=== PATIENT | female | born 1995 | race Caucasian/White ===

== ENCOUNTER 2016-09-21 12:53 | Inpatient (IN) | payer OTHER ==
[~2016-09-21] VITALS: Ht 154.9 cm; Wt 64.0 kg
[2016-09-21 13:06] VITALS: Ht 154.9 cm; Wt 64.0 kg
[2016-09-21 13:07] VITALS: BP 113/73; PULSE 97; RESP 20
[2016-09-21] MEDS ORDERED: PREN1TAB79 PO (13:10)
--- NOTE | 2016-09-21 13:54 | RADRPT ---
PROCEDURE: OB ultrasound for biophysical profile CLINICAL INDICATION: Variable decelerations TECHNIQUE: Multiple sonographic images of the pelvis were obtained. Transabdominal views of the g ravid uterus are available for review. The images were reviewed on a PACS workstation. COMPARISON: None FINDINGS: breathing movement = 2/2 tone = 2/2 motion = 2/2 JANNETTE = 2/2 JANNETTE = 14.9 cm Single live intrauterine with cardiac activity of 143 bpm. position is cephal ic. The placenta is posterior. IMPRESSION: 1. Single live intrauterine gestation. 2. Biophysical profile = 8/8. 3. JANNETTE = 14.9 cm. RPTAT: HH .Hailey Merritt MD, MD Date Time Electronically viewed and signed by .Hailey Merritt MD, on 09/21/2016 13:53 .G/
--- NOTE | 2016-09-21 13:55 | RADRPT ---
PROCEDURE: US OB. CLINICAL INDICATION: Size and dates TECHNIQUE: Multiple sonographic images of the pelvis were obtained. Transabdominal imaging only w as performed. The images were reviewed on a PACS workstation. COMPARISON: No prior studies are available for comparison. FINDINGS: There is a single live intrauterine gestation. Cardiac activity is present with 148 beats per minut e. position is cephalic. Measurements were made in order to determine age. The results are as follows: BPD = 9.04 cm HC = 32.26 cm AC = 34.41 cm FL = 7.01 cm. Estimated gestational age of approximately 36 weeks 6 days. The estimated date of delivery is 10/13/2016. The EFW = 3189 g, 20 %ile. The placenta is posterior. There is no evidence for an abruption or placenta previa. There are no adnexal masses. IMPRESSION: 1. Single live intrauterine gestation of approximately 36 weeks 6 days, by ultrasound criteria. 2. The estimated date of delivery is 10/13/2016. 3. The estimated weight is 3189 g, 20th %ile. RPTAT: HH .Hailey Merritt MD, Date Time Electronically viewed and signed by .Hailey Merritt MD, on 09/21/2016 13:55 .G/
[2016-09-21] MEDS ORDERED: MISOPROSTOL 200 MCG TAB PR PRN (16:00)
[2016-09-21] MEDS ORDERED: OXYTOCIN 30 UNITS/LR 500 ML IV PRN (16:00)
[2016-09-21] MEDS ORDERED: IBUPROFEN 600 MG TAB PO PRN (16:00)
[2016-09-21] MEDS ORDERED: OXYTOCIN 30 UNITS/LR 500 ML IV SCH ×3 (16:00)
[2016-09-21] MEDS ORDERED: LIDOCAINE 1% (MPF) 30 ML INJ INJ PRN (16:00)
[2016-09-21] MEDS ORDERED: METHYLERGONOVINE 0.2 MG INJ IM PRN (16:00)
[2016-09-21] MEDS ORDERED: BUTORPHANOL 2 MG INJ IV PRN (16:00)
[2016-09-21] MEDS ORDERED: CARBOPROST 250 MCG INJ IM PRN (16:00)
[2016-09-21] MEDS: LACTATED RINGER'S 1,000 ML IV SCH ×2 (16:03→23:33)
[2016-09-21] MEDS ORDERED: LACTATED RINGER'S 1,000 ML IV PRN (16:30)
--- NOTE | 2016-09-21 16:49 | HP ---
Date/Time of Note Date/Time of Note DATE: 09/21/16 TIME: 16:45 OB - History Hx of Present Chief Complaint: contractions Last Menstrual Period: Dec 18, 2015 Estimated Due Date: Sep 23, 2016 : 3 Para: 2 Spontaneous : 0 Therapeutic : 0 Care: Good Care Ultrasounds: Normal mid trimester US Obstetrical Complications: None Medical Complications: None Past Family/Social History * Past Medical, Surgical, Family and Obstetric Histories reviewed from chart. GBS Status: Negative OB Admission Exam Vital Signs Vital Signs Vital Signs Date Time Temp Pulse Resp B/P Pulse Ox O2 Delivery O2 Flow Rate FiO2 09/21/16 13:07 98.0 97 20 113/73 Room Air Physical Exam HEENT: WNL Heart: Rhythm Normal Lungs: Clear Abdomen: WNL Extremities: Normal Cervical Dilatation: 3cm Effacement: 50% Station: -1 Membranes: Intact Heart Rate: 140's Accelerations: Accelerations Present Decelerations: No Decelerations Varibility: Moderate Contractions on Admission: 6-10 Minutes Apart OB Assessment/Plan Reason for admission: active labor Plan: Expectant Management MAIKEL CRABTREE MD Sep 21, 2016 16:49
[2016-09-21 18:29] LABS: BASOPHILS % 0.5 % (0.0-2.0); EOSINOPHILS # 0.1 10^3/ul (0.0-0.5); EOSINOPHILS % 0.9 % (0.0-7.0); HEMATOCRIT 30.1 % (37.0-47.0); HEMOGLOBIN 10.3 g/dl (12.0-16.0); LYMPHOCYTES # 1.7 10^3/ul (0.8-2.9); LYMPHOCYTES % 27.4 % (18.0-55.0); MEAN CORPUSCULAR HEMOGLOBIN 27.3 pg (29.0-33.0); MEAN CORPUSCULAR HGB CONC 34.3 g/dl (32.0-37.0); MEAN CORPUSCULAR VOLUME 79.6 fl (72.0-104.0); MEAN PLATELET VOLUME 7.4 fl (7.4-10.4); MONOCYTE # 0.6 10^3/ul (0.3-0.9); MONOCYTES % 9.5 % (0.0-13.0); NEUTROPHIL # 3.8 10^3/ul (1.6-7.5); NEUTROPHILS % 61.7 % (30.0-74.0); PLATELET COUNT 272 10^3/UL (140-440); RED BLOOD COUNT 3.78 10^6/ul (4.20-5.40); RED CELL DISTRIBUTION WIDTH 14.2 % (11.5-14.5); UNCORRECTED WBC 6.2 10^3/ul (4.8-10.8); WHITE BLOOD COUNT 6.2 10^3/ul (4.8-10.8)
[2016-09-21 18:33] LABS: CONDITION 1; LH ANALYZER COMMENTS 1
[2016-09-21 18:41] LABS: INR 0.93; PROTIME 12.5 Sec (12.2-14.2)
[2016-09-21] MEDS ORDERED: FENTAnyl 2MCG/ML-ROPIV 0.2% 100 ML ONE (22:25)
[2016-09-21] MEDS ORDERED: KETOROLAC 30 MG INJ IV PRN (23:00)
[2016-09-21] MEDS ORDERED: FENTAnyl 2MCG/ML-ROPIV 0.2% 100 ML BAG EPI SCH (23:00)
[2016-09-21] MEDS ORDERED: ONDANSETRON 4 MG INJ IV PRN (23:00)
[2016-09-21] MEDS ORDERED: morphine 2 MG INJ IV PRN ×2 (23:00)
[2016-09-21] MEDS ORDERED: DIPHENHYDRAMINE 50 MG INJ IV PRN (23:00)
[2016-09-21] MEDS ORDERED: HYDROmorphONE 1 MG/ML SYG IV PRN ×2 (23:00)
[2016-09-21] MEDS ORDERED: NALOXONE (0.4 MG/ML) INJ IV PRN (23:00)
[2016-09-22] MEDS: LACTATED RINGER'S 1,000 ML IV SCH (03:10)
--- NOTE | 2016-09-22 05:59 | LDN ---
Date/Time of Note Date/Time of Note DATE: 09/22/16 TIME: 05:58 Delivery Summary over intact perineum Placenta Delivered: Spontaneously Meconium: none Perineum intact?: Yes Anesthesia type: Epidural Estimated blood loss: 200 Sponge & Needle done & correct: Yes All needle counts correct: Yes Any foreign bodies felt in the: No Problems: Delivery Information Sex Infant Sex: male Apgars 1 Minute: 8 5 Minute: 9 Suctioning Nose & mouth suctioned at hayder: Yes Delee suction performed: No Umbilical Cord Umbilical cord with: 3 Vessels Cord presentations: no nuchal cord Cord Blood was obtained: Yes Mother & Baby Disposition Disposition Mom & Baby to Maternity; Good: Yes MAIKEL CRABTREE MD Sep 22, 2016 05:59
--- NOTE | 2016-09-22 06:01 | DELSUM ---
Delivery Summary A-C Datetime Report Generated by CPN: 09/22/2016 06:01 DELIVERY PERSONNEL Desolderer: Long, Mary MATERNAL INFORMATION Delivery Anesthesia: Epidural Medications in Delivery: OXYTOCIN 30MG IN 500ML LR Estimated Blood Loss (ml): 250 Placenta Cultured: No Maternal Complications: None LABOR SUMMARY EDC: 09/23/2016 00:00 No. Babies in Womb: 1 Attempted: No Labor Anesthesia: Epidural LABOR INFORMATION Reason for Induction: Not Applicable Complete Dilatation: 09/22/2016 03:59 Oxytocin: N/A Group B Beta Strep: Negative Antibiotics # of Doses: 0 Steroids Given: None Reason Steroids Not Administered: Not Applicable MEMBRANES Membranes Rupture Method: Spontaneous Rupture of Membranes: 09/22/2016 03:59 Length of Rupture (hr): 1.68 Amniotic Fluid Color: Clear Amniotic Fluid Amount: Moderate Amniotic Fluid Odor: None STAGES OF LABOR Stage 2 hr: 1 Stage 2 min: 41 Stage 3 hr: 0 Stage 3 min: 4 VAGINAL DELIVERY Episiotomy: None Laceration Extension: N/A Laceration Type: None Laceration Repair: Not Applicable Initial Vag Sponge Count: 20 Final Vag Sponge Count: 20 Initial Vag Sharps Count: 1 Final Vag Sharps Count: 1 Sponge Count Correct: Yes Sharps Count Correct: Yes BABY A INFORMATION Infant Delivery Date/Time: 09/22/2016 05:40 Method of Delivery: Vaginal Born in Route : No : N/A Forceps: N/A Vacuum Extraction: N/A Shoulder Dystocia : N/A SHOULDER DYSTOCIA BABY A Delivery Date/Time: 09/22/2016 05:40 PRESENTATION/POSITION BABY A Presentation: Cephalic Cephalic Presentation: Vertex Vertex Position: Right Occipital Posterior Breech Presentation: N/A PLACENTA INFORMATION BABY A Placenta Delivery Time : 09/22/2016 05:44 Placenta Method of Delivery: Spontaneous Placenta Status: Delivered SCORES BABY A Heart Rate 1 min: >100 bpm Resp Effort 1 min: Good Cry Reflex Irritability 1 min: Cough/Sneeze/Pulls Away Muscle Tone 1 min: Active Motion Color 1 min: Blue/Pale Resuscitation Effort 1 min: Tactile Stimulation SCORE 1 MIN: 8 Heart Rate 5 min: >100 bpm Resp Effort 5 min: Good Cry Reflex Irritability 5 min: Cough/Sneeze/Pulls Away Muscle Tone 5 min: Active Motion Color 5 min: Body Cot[place], Extremit Blue Resuscitation Effort 5 min: Tactile Stimulation SCORE 5 MIN: 9 INFORMATION BABY A Gestational Age at Delivery: 39.6 Gestational Status: Full Term- 39- 40.6 Weeks Outcome : Liveborn Infant Condition : Stable Sex: Male IDENTIFICATION/MEDS BABY A ID Band Number: [id number] ID Band Location: Right Leg; Left Arm Sensor Applied: Yes Sensor Number: [id number] Sensor Location : Cord Clamp Vitamin K Given : Not Given Erythromycin Given: Not Given WEIGHT/LENGTH BABY A Birthweight (gm): 2880 Infant Weight (lb): 6 Infant Weight (oz): 6 CORD INFORMATION BABY A No. Cord Vessels: 3 Nuchal Cord : N/A Cord Blood Taken: Yes Suction: Mouth; Nose ASSESSMENT BABY A Infant Complications: Decreased Variability; Multiple Variable Decels Physical Findings at Delivery: Within Normal Limits Infant Respirations: Appears Normal Engine Installer/ALS Called : No Infant Care By: ANGELICA HERNANDEZ RN Transferred To: Remains with Mother
[2016-09-22 08:45] VITALS: BP 117/70; PULSE 70; RESP 18
[2016-09-22] MEDS: LACTATED RINGER'S 1,000 ML IV* SCH ×2 (09:14→17:01)
[2016-09-22] MEDS ORDERED: WITCH HAZEL/GLYCERIN PAD PR PRN (09:30)
[2016-09-22] MEDS ORDERED: ACETAMINOPHEN/CODEINE #3 TAB PO PRN (09:30)
[2016-09-22] MEDS ORDERED: OXYTOCIN 30 UNITS/LR 500 ML IV PRN (09:30)
[2016-09-22] MEDS ORDERED: BENZOCAINE 20% 56 ML SPRAY TOP PRN (09:30)
[2016-09-22] MEDS ORDERED: CARBOPROST 250 MCG INJ IM PRN (09:30)
[2016-09-22] MEDS ORDERED: ACETAMINOPHEN 325 MG TAB PO PRN (09:30)
[2016-09-22] MEDS ORDERED: DIBUCAINE 1% 30 GM OINT PR PRN (09:30)
[2016-09-22] MEDS ORDERED: METHYLERGONOVINE 0.2 MG INJ IM PRN (09:30)
[2016-09-22] MEDS ORDERED: MISOPROSTOL 200 MCG TAB PR PRN (09:30)
[2016-09-22] MEDS: IBUPROFEN 600 MG TAB PO SCH ×2 (11:49→17:38)
[2016-09-22 14:59] VITALS: BP 115/69; PULSE 70; RESP 18
[2016-09-22 20:00] VITALS: BP 110/54; PULSE 78; RESP 19
[2016-09-22] MEDS: SENNA/DOCUSATE NA (8.6MG/50MG) TAB PO SCH (20:28)
[2016-09-23] MEDS: IBUPROFEN 600 MG TAB PO SCH ×4 (00:42→17:59)
[2016-09-23] MEDS: LACTATED RINGER'S 1,000 ML IV* SCH (01:01)
[2016-09-23 04:00] VITALS: BP 99/67; PULSE 66; RESP 18
[2016-09-23 07:08] LABS: BASOPHILS % 0.4 % (0.0-2.0); EOSINOPHILS # 0.2 10^3/ul (0.0-0.5); EOSINOPHILS % 1.7 % (0.0-7.0); HEMATOCRIT 24.5 % (37.0-47.0); HEMOGLOBIN 8.4 g/dl (12.0-16.0); LYMPHOCYTES # 2.1 10^3/ul (0.8-2.9); LYMPHOCYTES % 21.7 % (18.0-55.0); MEAN CORPUSCULAR HEMOGLOBIN 27.5 pg (29.0-33.0); MEAN CORPUSCULAR HGB CONC 34.4 g/dl (32.0-37.0); MEAN CORPUSCULAR VOLUME 79.9 fl (72.0-104.0); MEAN PLATELET VOLUME 7.1 fl (7.4-10.4); MONOCYTE # 0.7 10^3/ul (0.3-0.9); MONOCYTES % 7.2 % (0.0-13.0); NEUTROPHIL # 6.7 10^3/ul (1.6-7.5); PLATELET COUNT 213 10^3/UL (140-440); RED BLOOD COUNT 3.07 10^6/ul (4.20-5.40); RED CELL DISTRIBUTION WIDTH 14.2 % (11.5-14.5); UNCORRECTED WBC 9.7 10^3/ul (4.8-10.8); WHITE BLOOD COUNT 9.7 10^3/ul (4.8-10.8)
[2016-09-23 07:10] LABS: CONDITION 1; LH ANALYZER COMMENTS 1
[2016-09-23 07:48] VITALS: BP 98/61; PULSE 77; RESP 18
[2016-09-23] MEDS: SENNA/DOCUSATE NA (8.6MG/50MG) TAB PO SCH ×2 (08:31→21:31)
[2016-09-23 15:19] VITALS: BP 104/65; PULSE 79; RESP 18
[2016-09-23 20:05] VITALS: BP 98/69; PULSE 72; RESP 18
--- NOTE | 2016-09-23 20:48 | DS ---
Date/Time of Note Date/Time of Note DATE: 09/23/16 TIME: 20:47 Obstetrical Discharge Record Final Diagnosis Final Diagnosis: Term delivered Vaginal Delivery Obstetrical Delivery: Spontaneous Condition on Discharge Physical Assessment Voiding: Yes Bowel Movement: Yes Breast: Soft, non-tender Fundus: Firm Calf Tenderness: No Patient Condition: Stable MAIKEL CRABTREE MD Sep 23, 2016 20:48
[2016-09-24 04:10] VITALS: BP 105/67; PULSE 63; RESP 18
[2016-09-24] MEDS: IBUPROFEN 600 MG TAB PO SCH ×4 (05:58→17:15)
[2016-09-24 08:00] VITALS: BP 122/76; PULSE 66; RESP 18
[2016-09-24] MEDS ORDERED: DIPHTH/TET/ACEL PERTUSS (ADULT) 0.5 ML VIAL IM* ONE (09:00)
[2016-09-24] MEDS: SENNA/DOCUSATE NA (8.6MG/50MG) TAB PO SCH (09:21)
[2016-09-24 18:40] VITALS: BP 109/63; PULSE 71; RESP 16
[2016-09-24 19:50] VITALS: BP 117/72; PULSE 77; RESP 18
== END 2016-09-24 21:30 | disposition home or self-care (01) | DRG 775 ==
LOC: OBT 12:53 → L-D 12:54 → OBT 15:20 → PP1 09-22 08:41
PROVIDERS: ADMIT Obstetrics & Gynecology; ATTEND Obstetrics & Gynecology
PROC: 10E0XZZ Delivery of Products of Conception, External Approach (ICD-10-PCS; principal; 2016-09-22)
DX: O80 Encounter for full-term uncomplicated delivery (principal); Z37.0 Single live birth; Z3A.39 39 weeks gestation of pregnancy
CPT/HCPCS: 62319; 76815; 76818; 85025; 85610; 85730; 86592; 86900; 86901; 87340; 90715; 99464; G0463; J3010; J7120

== ENCOUNTER 2017-06-24 08:30 | Day surgery (SDC) | payer OTHER ==
[2017-06-24] VITALS (11 sets, daily range): BP systolic 99–118; BP diastolic 49–72; PULSE 62–78; RESP 16–26
[~2017-06-24] VITALS: Ht 160 cm; Wt 61.4 kg
[~2017-06-24 08:30] MED LIST: PREN1TAB79 PO
[2017-06-24] MEDS ORDERED: ROCURONIUM 50 MG INJ ONE (11:06)
[2017-06-24] MEDS ORDERED: NEOSTIGMINE 3 MG/3 ML SYRINGE ONE (11:06)
[2017-06-24] MEDS ORDERED: GLYCOPYRROLATE 0.4 MG INJ ONE (11:06)
[2017-06-24] MEDS ORDERED: PROPOFOL 20 ML ONE (11:06)
[2017-06-24] MEDS ORDERED: MIDAZOLAM 1 MG/ML 2 ML INJ ONE (11:06)
[2017-06-24] MEDS ORDERED: METOCLOPRAMIDE 10 MG INJ ONE (11:07)
[2017-06-24] MEDS ORDERED: KETOROLAC 30 MG INJ ONE (11:07)
[2017-06-24] MEDS ORDERED: BUPIVACAINE 0.5%/EPI (SDV) 30 ML INJ ONE (11:07)
[2017-06-24] MEDS ORDERED: ONDANSETRON 4 MG INJ ONE (11:07)
[2017-06-24] MEDS ORDERED: ROPIVACAINE 0.5 % 30 ML VIAL ONE (11:07)
[2017-06-24] MEDS ORDERED: CEFAZOLIN 1 GM INJ ONE (11:22)
[2017-06-24] MEDS ORDERED: EPHEDrine SULFATE 50 MG/5 ML SYG ONE (11:39)
[2017-06-24] MEDS ORDERED: morphine (1 MG/ML) 10ML SYRINGE IV PRN ×3 (12:00)
[2017-06-24] MEDS ORDERED: DIPHENHYDRAMINE 50 MG INJ IV PRN (12:00)
[2017-06-24] MEDS ORDERED: ONDANSETRON 4 MG INJ IV PRN ×2 (12:00→13:00)
--- NOTE | 2017-06-24 12:46 | SIPON ---
Date/Time of Note Date/Time of Note DATE: 06/24/17 TIME: 12:42 Operative Report Preoperative Diagnosis Voluntary sterilization Postoperative Diagnosis Same Operation/Procedure Performed Minilaparotomy BTL Surgeon Maikel Crabtree MD assistant manager of operations roofing technician Anesthesia: general Estimated blood loss: minimal Transfusion Required none Specimen right and left Fallopian tubes Grafts/Implants none Complications none MAIKEL CRABTREE MD Jun 24, 2017 12:46
--- NOTE | 2017-06-24 12:46 | SIPON ---
Date/Time of Note Date/Time of Note DATE: 06/24/17 TIME: 12:42 Operative Report Preoperative Diagnosis Voluntary sterilization Postoperative Diagnosis Same Operation/Procedure Performed Minilaparotomy BTL Surgeon Maikel Crabtree MD seed laboratory assistant laboratory tech Anesthesia: general Estimated blood loss: minimal Transfusion Required none Specimen right and left Fallopian tubes Grafts/Implants none Complications none MAIKEL CRABTREE MD Jun 24, 2017 12:46
--- NOTE | 2017-06-24 12:46 | SIPON ---
Date/Time of Note Date/Time of Note DATE: 06/24/17 TIME: 12:42 Operative Report Preoperative Diagnosis Voluntary sterilization Postoperative Diagnosis Same Operation/Procedure Performed Minilaparotomy BTL Surgeon Maikel Crabtree MD transition assistant electrical tech Anesthesia: general Estimated blood loss: minimal Transfusion Required none Specimen right and left Fallopian tubes Grafts/Implants none Complications none MAIKEL CRABTREE MD Jun 24, 2017 12:46
[2017-06-24] MEDS ORDERED: HYDROCODONE/APAP (5/325) TAB PO PRN (13:00)
[2017-06-24] MEDS ORDERED: KETOROLAC 30 MG INJ IV PRN (13:00)
[2017-06-24] MEDS ORDERED: morphine 2 MG INJ IV PRN (13:00)
--- NOTE | 2017-06-24 14:30 | PREOPHP ---
DATE OF ADMISSION: 06/24/2017 HISTORY: A 22-year-old female 3, para 3, requests surgical sterilization by bilateral tubal ligation. PAST MEDICAL HISTORY: Unremarkable. PAST SURGICAL HISTORY: Unremarkable. ALLERGIES: NO KNOWN ALLERGIES. FAMILY HISTORY: Noncontributory. PHYSICAL EXAMINATION: VITAL SIGNS: The patient is afebrile. Vital signs stable. HEAD, NECK AND CHEST: Within normal limits. ABDOMEN: Soft, nontender, nondistended. PELVIC: Normal. EXTREMITIES: Within normal limits. NEUROLOGIC: Within normal limits. IMPRESSION: Voluntary sterilization. PLAN: Minilaparotomy, bilateral tubal ligation. Risks, benefits and alternatives of the procedure were explained to the patient. The patient has been counseled about all of her contraceptive option s including all methods of sterilization. It was explained to the patient that with bilateral tubal ligation there is a chance of failure resulting in ectopic and/or intrauterine . After counseling, the patient said she understood and gave informed consent for the procedure. Dictated By: MAIKEL HINSON/PROSPER Conf#: [id number] DID#: [id number]
--- NOTE | 2017-06-24 15:16 | OPR ---
DATE OF OPERATION: 06/24/2017 PREOPERATIVE DIAGNOSIS: Voluntary sterilization. POSTOPERATIVE DIAGNOSIS: Voluntary sterilization. OPERATION PERFORMED: Minilaparotomy, bilateral tubal ligation. SURGEON: Maikel Bartholomew MD HUC OB: line technician. ANESTHESIA: General. ANESTHESIOLOGIST: Dr. Kim. PROCEDURE: The patient was taken to operating room and placed on the operating table in supine posi tion. After adequate general anesthesia was given, the area was prepared and draped in the usual st erile fashion. Using a scalpel, Pfannenstiel incision was made about 2 fingerbreadths above the symphysis pubis. T he incision was carried to the fascia. The fascia was incised and extended bilaterally with Bovie. Two Latonia's were used to separate the fascia from the muscle. The muscle was dissected down to pe ritoneum. The peritoneum was secured with 2 Kellys and incised with Metzenbaum scissors. The right fallopian tube was grasped with a Nohelia clamp and followed to its fimbrial end to confirm its gamal ntity. Using 0 plain suture ligature, a 5 cm segment of the right fallopian tube was doubly ligated . Using Metzenbaum scissors, a portion of the right fallopian tube above the ligated area was excis ed and sent to pathology. Same procedure was repeated on the left fallopian tube. After assuring h emostasis, the muscle was reapproximated with 2-0 chromic. The fascia was closed with 0 Vicryl cont inuous. Subcutaneous tissue was reapproximated with 0 chromic. Skin was closed with valarie. ESTIMATED BLOOD LOSS: Minimal. COUNTS: All counts were correct. Dictated By: MAIKEL HINSON/PROSPER Conf#: [id number] DID#: [id number]
--- NOTE | 2017-06-24 15:16 | OPR ---
DATE OF OPERATION: 06/24/2017 PREOPERATIVE DIAGNOSIS: Voluntary sterilization. POSTOPERATIVE DIAGNOSIS: Voluntary sterilization. OPERATION PERFORMED: Minilaparotomy, bilateral tubal ligation. SURGEON: Maikel Bartholomew MD [employer]CR[employer] FABRICATOR: erp technical lead. ANESTHESIA: General. ANESTHESIOLOGIST: Dr. Kim. PROCEDURE: The patient was taken to operating room and placed on the operating table in supine posi tion. After adequate general anesthesia was given, the area was prepared and draped in the usual st erile fashion. Using a scalpel, Pfannenstiel incision was made about 2 fingerbreadths above the symphysis pubis. T he incision was carried to the fascia. The fascia was incised and extended bilaterally with Bovie. Two Latonia's were used to separate the fascia from the muscle. The muscle was dissected down to pe ritoneum. The peritoneum was secured with 2 Kellys and incised with Metzenbaum scissors. The right fallopian tube was grasped with a Nohelia clamp and followed to its fimbrial end to confirm its gamal ntity. Using 0 plain suture ligature, a 5 cm segment of the right fallopian tube was doubly ligated . Using Metzenbaum scissors, a portion of the right fallopian tube above the ligated area was excis ed and sent to pathology. Same procedure was repeated on the left fallopian tube. After assuring h emostasis, the muscle was reapproximated with 2-0 chromic. The fascia was closed with 0 Vicryl cont inuous. Subcutaneous tissue was reapproximated with 0 chromic. Skin was closed with valarie. ESTIMATED BLOOD LOSS: Minimal. COUNTS: All counts were correct. Dictated By: MAIKEL HINSON/PROSPER Conf#: [id number] DID#: [id number]
--- NOTE | 2017-06-24 15:16 | OPR ---
DATE OF OPERATION: 06/24/2017 PREOPERATIVE DIAGNOSIS: Voluntary sterilization. POSTOPERATIVE DIAGNOSIS: Voluntary sterilization. OPERATION PERFORMED: Minilaparotomy, bilateral tubal ligation. SURGEON: Maikel Bartholomew MD HEALTH EDUCATION SPECIALIST: satellite tv technician. ANESTHESIA: General. ANESTHESIOLOGIST: Dr. iKm. PROCEDURE: The patient was taken to operating room and placed on the operating table in supine posi tion. After adequate general anesthesia was given, the area was prepared and draped in the usual st erile fashion. Using a scalpel, Pfannenstiel incision was made about 2 fingerbreadths above the symphysis pubis. T he incision was carried to the fascia. The fascia was incised and extended bilaterally with Bovie. Two Latonia's were used to separate the fascia from the muscle. The muscle was dissected down to pe ritoneum. The peritoneum was secured with 2 Kellys and incised with Metzenbaum scissors. The right fallopian tube was grasped with a Nohelia clamp and followed to its fimbrial end to confirm its gamal ntity. Using 0 plain suture ligature, a 5 cm segment of the right fallopian tube was doubly ligated . Using Metzenbaum scissors, a portion of the right fallopian tube above the ligated area was excis ed and sent to pathology. Same procedure was repeated on the left fallopian tube. After assuring h emostasis, the muscle was reapproximated with 2-0 chromic. The fascia was closed with 0 Vicryl cont inuous. Subcutaneous tissue was reapproximated with 0 chromic. Skin was closed with valarie. ESTIMATED BLOOD LOSS: Minimal. COUNTS: All counts were correct. Dictated By: MAIKEL HINSON/PROSPER Conf#: [id number] DID#: [id number]
--- NOTE | 2017-06-24 16:10 | PN ---
Date/Time of Note Date/Time of Note DATE: 06/24/17 TIME: 16:05 Assessment/Plan VTE Prophylaxis VTE Prophylaxis Intervention: other Lines/Catheters IV Catheter Type (from Nrsg): Saline Lock Subjective 24 Hr Interval Summary Free Text/Dictation Anesthesia note: I was called for the pt b22 year femalwe s/p mimilaparatomy TBL under GA, TAP block and local injection per surgeon today. pt complains of weakness of left leg, cant stand on leg. on exam, pt had motor function on foot, moving leg,but had sensory deficit on med of leg and thigh more on leg and on ant of leg. lat side of leg is intact, osensation on both side of abdoman . pt was advosed to go home and wait to effect of local anesthesia wears off, not to walk without help and come back if weakness stays more than 24 hours. Exam/Review of Systems Vital Signs Vitals Vital Signs Date Time Temp Pulse Resp B/P Pulse Ox O2 Delivery O2 Flow Rate FiO2 06/24/17 13:35 97.6 76 18 118/72 100 06/24/17 13:12 Room Air Results Result Diagram: 06/24/17 0930 Results 24 hrs Laboratory Tests Test 06/24/17 09:30 White Blood Count 6.4 # Red Blood Count 4.18 #L Hemoglobin 13.1 # Hematocrit 37.4 # Mean Corpuscular Volume 89.5 Mean Corpuscular Hemoglobin 31.3 Mean Corpuscular Hemoglobin Concent 35.0 Red Cell Distribution Width 12.0 Platelet Count 266 Mean Platelet Volume 9.3 # Neutrophils % 51.4 Lymphocytes % 35.2 Monocytes % 8.4 Eosinophils % 3.7 Basophils % 0.8 Nucleated Red Blood Cells % 0.0 Neutrophils # 3.3 Lymphocytes # 2.3 Monocytes # 0.5 Eosinophils # 0.2 Basophils # 0.1 Nucleated Red Blood Cells # 0.0 Prothrombin Time 13.0 Prothrombin Time Ratio 1.0 INR International Normalized Ratio 0.98 Activated Partial Thromboplast Time 28.4 Medications Medications Current Medications Influenza Virus Vaccine (Fluzone) 0.5 ml ONCE ONCE IM* ; Start 06/25/17 at 09:00 ; Stop 06/25/17 at 09:01 Ketorolac Tromethamine (Toradol) 30 mg ONCE PRN IV PAIN; Start 06/24/17 at 13: 00; Stop 06/27/17 at 12:59 Acetaminophen/ Hydrocodone Bitart ([place] (5/325)) 2 tab Q4H PRN PO PAIN LEVEL 4 -6 Last administered on 06/24/17t 14:34; Admin Dose 2 TAB; Start 06/24/17 at 13:00 Morphine Sulfate (morphine) 2 mg ONCE PRN IV SEVERE PAIN LEVEL 7-10; Start at 13:00; Stop 06/24/17 at 23:00 Ondansetron HCl (Zofran Inj) 4 mg Q6H PRN IV NAUSEA; Start 06/24/17 at 13:00 ARMANDO WILLAMS MD Jun 24, 2017 16:10
[2017-06-25] MEDS ORDERED: INFLUENZA VIRUS VACCINE 0.5 ML (DISPENSING) IM* ONE (09:00)
== END 2017-06-24 16:20 | disposition home or self-care (01) ==
LOC: SDS 08:30
PROVIDERS: ATTEND Obstetrics & Gynecology
DX: Z30.2 Encounter for sterilization (principal)
CPT/HCPCS: 58600; 84703; 85025; 85610; 85730; 88302; J0690; J1885; J2250; J2270; J2405; J2710; J2765; J2795; Z7512; Z7610